=== PATIENT | male | born 1955 | race Asian ===

== ENCOUNTER 2019-07-04 10:40 | Emergency (ER) | payer MEDICAID ==
[~2019-07-04] VITALS: Ht 170.2 cm; Wt 65.0 kg
[2019-07-04 10:59] VITALS: BP 149/77
== END 2019-07-04 13:24 | disposition home or self-care (01) ==
LOC: ER 10:40
DX: R21 Rash and other nonspecific skin eruption (principal)
CPT/HCPCS: 99282